=== PATIENT | male | born 1950 | race Two or more races ===

== ENCOUNTER → 2017-09-25 06:58 | Outpatient (CLI) | payer OTHER | END | disposition home or self-care (01) | LOC: LAB 06:58 | DX: D47.2 Monoclonal gammopathy (principal); C67.9 Malignant neoplasm of bladder, unspecified; B20 Human immunodeficiency virus [HIV] disease; E11.9 Type 2 diabetes mellitus without complications; E78.2 Mixed hyperlipidemia; M10.371 Gout due to renal impairment, right ankle and foot; D50.8 Other iron deficiency anemias; I10 Essential (primary) hypertension; C90.00 Multiple myeloma not having achieved remission; R97.0 Elevated carcinoembryonic antigen [CEA]; R97.8 Other abnormal tumor markers; C18.9 Malignant neoplasm of colon, unspecified; D63.1 Anemia in chronic kidney disease; N18.3 Chronic kidney disease, stage 3 (moderate); N34.2 Other urethritis ==

== ENCOUNTER 2017-12-29 09:41 | Outpatient (CLI) | payer OTHER | END 2017-12-29 09:42 | disposition home or self-care (01) | LOC: LAB 09:41 | DX: D47.2 Monoclonal gammopathy (principal); C67.8 Malignant neoplasm of overlapping sites of bladder; B20 Human immunodeficiency virus [HIV] disease; E11.9 Type 2 diabetes mellitus without complications; E78.2 Mixed hyperlipidemia; M10.371 Gout due to renal impairment, right ankle and foot; D63.1 Anemia in chronic kidney disease; N18.3 Chronic kidney disease, stage 3 (moderate); D50.8 Other iron deficiency anemias; D51.8 Other vitamin B12 deficiency anemias; I10 Essential (primary) hypertension; D51.1 Vitamin B12 deficiency anemia due to selective vitamin B12 malabsorption with proteinuria; D51.0 Vitamin B12 deficiency anemia due to intrinsic factor deficiency; R97.0 Elevated carcinoembryonic antigen [CEA]; R97.8 Other abnormal tumor markers; N34.0 Urethral abscess ==

== ENCOUNTER 2018-01-24 07:33 | Outpatient (CLI) | payer OTHER | END 2018-01-24 08:00 | disposition home or self-care (01) | LOC: NUCLEAR 07:33 | DX: I20.0 Unstable angina (principal); E78.2 Mixed hyperlipidemia; I11.9 Hypertensive heart disease without heart failure | CPT/HCPCS: 78452; 93017; A9500 ==

== ENCOUNTER 2018-08-06 08:51 | Outpatient (CLI) | payer OTHER | END 2018-08-06 08:57 | disposition home or self-care (01) | LOC: LAB 08:51 | DX: C67.9 Malignant neoplasm of bladder, unspecified (principal); R97.0 Elevated carcinoembryonic antigen [CEA]; B20 Human immunodeficiency virus [HIV] disease; D63.1 Anemia in chronic kidney disease; N18.3 Chronic kidney disease, stage 3 (moderate); E11.9 Type 2 diabetes mellitus without complications; M10.371 Gout due to renal impairment, right ankle and foot; E78.2 Mixed hyperlipidemia; D50.8 Other iron deficiency anemias; D51.8 Other vitamin B12 deficiency anemias; I10 Essential (primary) hypertension ==

== ENCOUNTER 2019-11-22 07:05 | Outpatient (CLI) | payer OTHER | END 2019-11-22 07:13 | disposition home or self-care (01) | LOC: LAB 07:05 | PROVIDERS: ATTEND Internal Medicine Nephrology | DX: R97.20 Elevated prostate specific antigen [PSA] (principal); R80.8 Other proteinuria; N18.3 Chronic kidney disease, stage 3 (moderate); E11.21 Type 2 diabetes mellitus with diabetic nephropathy; D50.8 Other iron deficiency anemias; D51.8 Other vitamin B12 deficiency anemias; E55.9 Vitamin D deficiency, unspecified; D47.2 Monoclonal gammopathy; C90.00 Multiple myeloma not having achieved remission; R97.0 Elevated carcinoembryonic antigen [CEA]; R97.8 Other abnormal tumor markers ==

== ENCOUNTER 2019-11-22 07:45 | Outpatient (CLI) | payer OTHER | END 2019-11-22 07:53 | disposition home or self-care (01) | LOC: SONOGRAMA 07:45 → MAMO-SONO 08:15 | PROVIDERS: ATTEND Internal Medicine Hematology & Oncology | DX: C67.8 Malignant neoplasm of overlapping sites of bladder (principal); R97.0 Elevated carcinoembryonic antigen [CEA]; D47.2 Monoclonal gammopathy; B20 Human immunodeficiency virus [HIV] disease; D63.1 Anemia in chronic kidney disease; N18.3 Chronic kidney disease, stage 3 (moderate); E11.9 Type 2 diabetes mellitus without complications; M10.371 Gout due to renal impairment, right ankle and foot; E78.2 Mixed hyperlipidemia ==

== ENCOUNTER 2020-07-14 07:28 | Outpatient (CLI) | payer OTHER | END 2020-07-14 08:12 | disposition home or self-care (01) | LOC: LAB 07:28 | PROVIDERS: ATTEND Internal Medicine Hematology & Oncology | DX: R97.20 Elevated prostate specific antigen [PSA] (principal); D50.8 Other iron deficiency anemias; I10 Essential (primary) hypertension; D51.8 Other vitamin B12 deficiency anemias; E55.9 Vitamin D deficiency, unspecified; D47.2 Monoclonal gammopathy; C90.00 Multiple myeloma not having achieved remission; D63.8 Anemia in other chronic diseases classified elsewhere; R97.0 Elevated carcinoembryonic antigen [CEA]; R97.8 Other abnormal tumor markers; C67.8 Malignant neoplasm of overlapping sites of bladder; B20 Human immunodeficiency virus [HIV] disease; D63.1 Anemia in chronic kidney disease; E11.9 Type 2 diabetes mellitus without complications; M10.371 Gout due to renal impairment, right ankle and foot; E78.2 Mixed hyperlipidemia ==

== ENCOUNTER → 2020-10-05 08:23 | Outpatient (CLI) | payer OTHER | END | disposition home or self-care (01) | LOC: LAB 08:23 | PROVIDERS: ATTEND Internal Medicine Hematology & Oncology | DX: C67.8 Malignant neoplasm of overlapping sites of bladder (principal); R97.0 Elevated carcinoembryonic antigen [CEA]; D47.2 Monoclonal gammopathy; B20 Human immunodeficiency virus [HIV] disease; D63.1 Anemia in chronic kidney disease; N18.30 Chronic kidney disease, stage 3 unspecified; E11.9 Type 2 diabetes mellitus without complications; M10.371 Gout due to renal impairment, right ankle and foot; E78.2 Mixed hyperlipidemia; D50.8 Other iron deficiency anemias; R79.89 Other specified abnormal findings of blood chemistry; R74.02 Elevation of levels of lactic acid dehydrogenase [LDH]; I10 Essential (primary) hypertension; K76.89 Other specified diseases of liver; C90.00 Multiple myeloma not having achieved remission; D63.8 Anemia in other chronic diseases classified elsewhere ==

== ENCOUNTER → 2021-03-17 08:31 | Outpatient (CLI) | payer OTHER | END | disposition home or self-care (01) | LOC: LAB 08:31 | PROVIDERS: ATTEND Internal Medicine Hematology & Oncology | DX: I10 Essential (primary) hypertension (principal); D50.8 Other iron deficiency anemias; K76.89 Other specified diseases of liver; D51.8 Other vitamin B12 deficiency anemias; D47.2 Monoclonal gammopathy; C90.00 Multiple myeloma not having achieved remission; D63.8 Anemia in other chronic diseases classified elsewhere; C67.8 Malignant neoplasm of overlapping sites of bladder; B20 Human immunodeficiency virus [HIV] disease; D63.1 Anemia in chronic kidney disease; N18.30 Chronic kidney disease, stage 3 unspecified; E11.9 Type 2 diabetes mellitus without complications; M10.371 Gout due to renal impairment, right ankle and foot; E78.2 Mixed hyperlipidemia; E11.21 Type 2 diabetes mellitus with diabetic nephropathy; R80.8 Other proteinuria ==

== ENCOUNTER 2021-03-30 11:16 | Outpatient (CLI) | payer OTHER | END 2021-03-30 11:20 | disposition home or self-care (01) | LOC: LAB 11:16 | PROVIDERS: ATTEND Internal Medicine Hematology & Oncology | DX: C67.8 Malignant neoplasm of overlapping sites of bladder (principal); E11.9 Type 2 diabetes mellitus without complications; R97.0 Elevated carcinoembryonic antigen [CEA]; B20 Human immunodeficiency virus [HIV] disease; C90.00 Multiple myeloma not having achieved remission; D63.1 Anemia in chronic kidney disease; M10.371 Gout due to renal impairment, right ankle and foot; E78.2 Mixed hyperlipidemia ==

== ENCOUNTER 2021-12-16 09:59 | Outpatient (CLI) | payer OTHER | END 2021-12-16 10:05 | disposition home or self-care (01) | LOC: LAB 09:59 | PROVIDERS: ATTEND Internal Medicine Hematology & Oncology | DX: D64.9 Anemia, unspecified (principal); N39.0 Urinary tract infection, site not specified; R10.9 Unspecified abdominal pain; E03.9 Hypothyroidism, unspecified; E78.5 Hyperlipidemia, unspecified; R80.9 Proteinuria, unspecified; E11.9 Type 2 diabetes mellitus without complications; N40.0 Benign prostatic hyperplasia without lower urinary tract symptoms; Z12.5 Encounter for screening for malignant neoplasm of prostate; D50.8 Other iron deficiency anemias; R79.9 Abnormal finding of blood chemistry, unspecified; R74.02 Elevation of levels of lactic acid dehydrogenase [LDH]; K76.89 Other specified diseases of liver; C67.9 Malignant neoplasm of bladder, unspecified; D89.0 Polyclonal hypergammaglobulinemia; R97.0 Elevated carcinoembryonic antigen [CEA]; D63.1 Anemia in chronic kidney disease; M10.371 Gout due to renal impairment, right ankle and foot; E78.2 Mixed hyperlipidemia; N18.30 Chronic kidney disease, stage 3 unspecified ==

== ENCOUNTER → 2022-07-04 09:18 | Outpatient (CLI) | payer OTHER | END | disposition home or self-care (01) | LOC: LAB 09:18 | PROVIDERS: ATTEND Internal Medicine Hematology & Oncology | DX: D50.8 Other iron deficiency anemias (principal); R79.9 Abnormal finding of blood chemistry, unspecified; R74.02 Elevation of levels of lactic acid dehydrogenase [LDH]; K76.89 Other specified diseases of liver; D47.2 Monoclonal gammopathy; C90.00 Multiple myeloma not having achieved remission; C67.9 Malignant neoplasm of bladder, unspecified; R97.0 Elevated carcinoembryonic antigen [CEA]; B20 Human immunodeficiency virus [HIV] disease; D63.1 Anemia in chronic kidney disease; N18.30 Chronic kidney disease, stage 3 unspecified; E11.9 Type 2 diabetes mellitus without complications; M10.371 Gout due to renal impairment, right ankle and foot; E78.2 Mixed hyperlipidemia ==

== ENCOUNTER 2023-01-09 08:07 | Outpatient (CLI) | payer OTHER | END 2023-01-09 08:12 | disposition home or self-care (01) | LOC: LAB 08:07 | PROVIDERS: ATTEND Internal Medicine Hematology & Oncology | DX: C67.9 Malignant neoplasm of bladder, unspecified (principal); R97.0 Elevated carcinoembryonic antigen [CEA]; B20 Human immunodeficiency virus [HIV] disease; D63.1 Anemia in chronic kidney disease; E11.21 Type 2 diabetes mellitus with diabetic nephropathy; M10.371 Gout due to renal impairment, right ankle and foot; E78.2 Mixed hyperlipidemia; N18.31 Chronic kidney disease, stage 3a; D50.8 Other iron deficiency anemias; R79.9 Abnormal finding of blood chemistry, unspecified; R74.02 Elevation of levels of lactic acid dehydrogenase [LDH]; K76.89 Other specified diseases of liver; D47.2 Monoclonal gammopathy; C90.00 Multiple myeloma not having achieved remission; D63.8 Anemia in other chronic diseases classified elsewhere; R80.9 Proteinuria, unspecified ==

== ENCOUNTER 2023-06-13 10:56 | Outpatient (CLI) | payer OTHER | END 2023-06-13 11:00 | disposition home or self-care (01) | LOC: RAD 10:56 | DX: R07.89 Other chest pain (principal) ==

== ENCOUNTER → 2023-07-03 09:05 | Outpatient (CLI) | payer OTHER ==
[2023-07-03 09:47] LABS: HEMATOCRIT 41.8 % (39.0-48.0); HEMOGLOBIN 13.8 g/dL (13-16.00); MEAN CELL VOLUME 92.9 fL (80.0-100.00); MEAN CORPUSCULAR HEMOGLOBIN 30.8 pg (27.00-32.0); MEAN CORPUSCULAR HGB CONC 33.2 g/dl (32.0-36.0); PLATELET COUNT 278 K/uL (150-450); RED BLOOD COUNT 4.49 M/uL (4.00-6.00); RED CELL DISTRIBUTION WIDTH 15.2 % (11.5-14.5)
[2023-07-03 10:16] LABS: % SATURACION 24.2 % (20-50); ALBUMIN 3.8 gm/dL (3.4-5.0); BILIRUBIN TOTAL 0.56 mg/dL (0.3-1.2); CALCIUM 9.8 mg/dL (8.5-10.1); CREATININE SERUM 2.1 mg/dL (0.70-1.30); FERRITIN 58.9 NG/ML (26-388); GFR 31.03; GLOBULINA 4.1 G/DL (2.4-3.5); TOTAL PROTEIN 7.9 gm/dL (6.4-8.2)
[2023-07-03 11:49] LABS: FOLIC ACID > 20.00 ng/ml (4.78-20); VITAMIN D3 25 HYDROXY 94.19 ng/ml (30-120)
[2023-07-04 08:21] LABS: MANUAL PLATELET COUNT 484
[2023-07-04 08:22] LABS: PLATELET ESTIMATE NORMAL (NORMAL)
[2023-07-05 18:11] LABS: ERYTHROPOIETIN 11.4 mIU/mL (2.6-18.5)
[2023-07-06 20:06] LABS: t prot u 16.1 mg/dL (Not Estab.)
== END | disposition home or self-care (01) ==
LOC: LAB 09:05
PROVIDERS: ATTEND Internal Medicine Hematology & Oncology
DX: D50.8 Other iron deficiency anemias (principal); R79.9 Abnormal finding of blood chemistry, unspecified; I10 Essential (primary) hypertension; K76.89 Other specified diseases of liver; E55.9 Vitamin D deficiency, unspecified; D47.2 Monoclonal gammopathy; C90.00 Multiple myeloma not having achieved remission; C67.9 Malignant neoplasm of bladder, unspecified; D63.1 Anemia in chronic kidney disease; E11.9 Type 2 diabetes mellitus without complications; M10.371 Gout due to renal impairment, right ankle and foot; E78.2 Mixed hyperlipidemia

== ENCOUNTER 2023-08-28 07:17 | Outpatient (CLI) | payer OTHER | END 2023-08-28 07:22 | disposition home or self-care (01) | LOC: SONOGRAMA 07:17 | PROVIDERS: ATTEND Internal Medicine Nephrology | DX: N18.32 Chronic kidney disease, stage 3b (principal); I10 Essential (primary) hypertension; R80.9 Proteinuria, unspecified ==

== ENCOUNTER 2024-01-09 08:23 | Outpatient (CLI) | payer OTHER ==
[2024-01-09 09:23] LABS: HEMATOCRIT 39.1 % (39.0-48.0); HEMOGLOBIN 13.2 g/dL (13-16.00); MEAN CORPUSCULAR HEMOGLOBIN 30.4 pg (27.00-32.0); MEAN CORPUSCULAR HGB CONC 33.7 g/dl (32.0-36.0); PLATELET COUNT 290 K/uL (150-450); RED BLOOD COUNT 4.35 M/uL (4.00-6.00); RED CELL DISTRIBUTION WIDTH 15.1 % (11.5-14.5)
[2024-01-09 10:15] LABS: % SATURACION 24.9 % (20-50); ALBUMIN 3.9 gm/dL (3.4-5.0); BILIRUBIN TOTAL 0.53 mg/dL (0.3-1.2); CALCIUM 9.7 mg/dL (8.5-10.1); CREATININE SERUM 2.24 mg/dL (0.70-1.30); FERRITIN 99.3 NG/ML (26-388); GFR 28.72; GLOBULINA 4.1 G/DL (2.4-3.5); POTASSIUM 5.43 mEq/L (3.5-5.1)
[2024-01-09 10:27] LABS: PROSTATIC SPECIFIC ANTIGEN 4.97 NG/ML (0.010-4.00)
[2024-01-09 10:29] LABS: MANUAL PLATELET COUNT 312
[2024-01-09 10:32] LABS: PLATELET ESTIMATE NORMAL (NORMAL)
[2024-01-09 13:40] LABS: FOLIC ACID > 20.00 ng/ml (4.78-20)
[2024-01-09 13:41] LABS: VITAMIN D3 25 HYDROXY 57.52 ng/ml (30-120)
== END 2024-01-09 08:30 | disposition home or self-care (01) ==
LOC: LAB 08:23
PROVIDERS: ATTEND Internal Medicine Hematology & Oncology
DX: C67.9 Malignant neoplasm of bladder, unspecified (principal); R97.0 Elevated carcinoembryonic antigen [CEA]; B20 Human immunodeficiency virus [HIV] disease; D63.1 Anemia in chronic kidney disease; N18.30 Chronic kidney disease, stage 3 unspecified; E11.9 Type 2 diabetes mellitus without complications; M10.371 Gout due to renal impairment, right ankle and foot; E78.2 Mixed hyperlipidemia; E50.8 Other manifestations of vitamin A deficiency; I10 Essential (primary) hypertension; R74.02 Elevation of levels of lactic acid dehydrogenase [LDH]; K76.89 Other specified diseases of liver; E55.9 Vitamin D deficiency, unspecified; C25.9 Malignant neoplasm of pancreas, unspecified

== ENCOUNTER 2024-03-27 13:52 | Outpatient (CLI) | payer OTHER | END 2024-03-27 14:04 | disposition home or self-care (01) | LOC: RAD 13:52 | PROVIDERS: ATTEND Internal Medicine Infectious Disease | DX: J18.0 Bronchopneumonia, unspecified organism (principal) ==

== ENCOUNTER → 2024-07-05 08:12 | Outpatient (CLI) | payer OTHER ==
[2024-07-05 09:25] LABS: HEMATOCRIT 38.4 % (39.0-48.0); HEMOGLOBIN 12.4 g/dL (13-16.00); MEAN CELL VOLUME 92.8 fL (80.0-100.00); MEAN CORPUSCULAR HEMOGLOBIN 30.1 pg (27.00-32.0); MEAN CORPUSCULAR HGB CONC 32.4 g/dl (32.0-36.0); PLATELET COUNT 260 K/uL (150-450); RED BLOOD COUNT 4.13 M/uL (4.00-6.00); RED CELL DISTRIBUTION WIDTH 14.3 % (11.5-14.5)
[2024-07-05 10:19] LABS: ALBUMIN 3.5 gm/dL (3.4-5.0); BILIRUBIN TOTAL 0.3 mg/dL (0.3-1.2); CALCIUM 9.1 mg/dL (8.5-10.1); CREATININE SERUM 1.99 mg/dL (0.70-1.30); FERRITIN 77.4 NG/ML (26-388); GFR 32.92; GLOBULINA 3.8 G/DL (2.4-3.5); TOTAL PROTEIN 7.3 gm/dL (6.4-8.2)
[2024-07-05 10:25] LABS: POTASSIUM 5.97 mEq/L (3.5-5.1); PROSTATIC SPECIFIC ANTIGEN 5.23 NG/ML (0.010-4.00)
[2024-07-05 10:36] LABS: FOLIC ACID 16.88 ng/ml (4.78-20); VITAMIN D3 25 HYDROXY 61.08 ng/ml (30-120)
[2024-07-05 12:50] LABS: MANUAL PLATELET COUNT 388
[2024-07-05 12:52] LABS: PLATELET ESTIMATE NORMAL (NORMAL)
== END | disposition home or self-care (01) ==
LOC: LAB 08:12
PROVIDERS: ATTEND Internal Medicine Hematology & Oncology
DX: C67.9 Malignant neoplasm of bladder, unspecified (principal); R97.0 Elevated carcinoembryonic antigen [CEA]; D47.2 Monoclonal gammopathy; B20 Human immunodeficiency virus [HIV] disease; D63.1 Anemia in chronic kidney disease; E11.9 Type 2 diabetes mellitus without complications; N18.30 Chronic kidney disease, stage 3 unspecified; M10.371 Gout due to renal impairment, right ankle and foot; E78.2 Mixed hyperlipidemia; D50.8 Other iron deficiency anemias; R79.9 Abnormal finding of blood chemistry, unspecified; I10 Essential (primary) hypertension; R74.02 Elevation of levels of lactic acid dehydrogenase [LDH]; K76.89 Other specified diseases of liver; E55.9 Vitamin D deficiency, unspecified; C25.9 Malignant neoplasm of pancreas, unspecified; R97.8 Other abnormal tumor markers; R97.20 Elevated prostate specific antigen [PSA]

== ENCOUNTER 2024-12-30 07:36 | Outpatient (CLI) | payer OTHER ==
[2024-12-30 08:14] LABS: BASO % 1.2 % (0.1-1.2); EOS # 0.65 (0.04-0.54); EOS % 10.7 % (0.7-7.0); LYMPH # 1.36 (1.18-3.74); LYMPH % 22.5 % (19.3-53.1); MEAN PLATELET VOLUME 10.10 fl (9.4-12.4); MONO # 0.49 (0.24-0.82); MONO % 8.1 % (4.7-12.5); NEUT # 3.44 (1.56-6.13); NEUT % 56.8 % (34.0-71.1); RED CELL DISTRIBUTION WIDTH 14.6 % (11.6-14.4)
[2024-12-30 08:23] LABS: URINE APPEARANCE Clear; URINE BILIRRUBIN Negative (NEGATIVE); URINE BLOOD Negative; URINE COLOR Yellow; URINE GLUCOSE Negative (NEGATIVE); URINE KETONE Negative (NEGATIVE); URINE LEUKOCYTE Negative; URINE NITRATE Negative; URINE PROTEIN Trace (NEGATIVE); URINE UROBILINOGEN 0.2 E.U./dl
[2024-12-30 08:26] LABS: URINE BACTERIA 5.9 uL (0.0-1933); URINE WBC 1.9 uL (0.0-23.2)
[2024-12-30 08:38] LABS: URINE CAST 0.14 uL (0.0-1.40); URINE EPITHELIAL CELLS 1.2 uL (0.0-38.8); URINE RBC 0.4 uL (0.0-20.8)
[2024-12-30 10:05] LABS: BUN CREA RATIO 14.0 (7.0-25.0); CREATININE SERUM 2.17 mg/dL (0.70-1.30); GFR 29.71; GLUCOSE FASTING 106.0 mg/dL (65-100); OSMOLALITY SERUM 294.0 MOSM/KG (275-295)
[2024-12-30 10:06] LABS: % SATURACION 18.6 % (20-50); ALT/SGPT 24.0 U/L (12-78); AST/SGOT 22.0 U/L (15-37); BILIRUBIN TOTAL 0.33 mg/dL (0.3-1.2); FE 55.0 ug/dl (65-175); GLOBULINA 4.3 G/DL (2.4-3.5); LDH 199.0 U/L (87-241)
[2024-12-30 10:07] LABS: PROSTATIC SPECIFIC ANTIGEN 5.03 NG/ML (0.010-4.00)
[2024-12-30 11:40] LABS: CREATININE URINE RANDOM 70.4 MG/DL (30-125)
[2024-12-30 15:30] LABS: FOLIC ACID > 20.00 ng/ml (4.78-20); VITAMIN D3 25 HYDROXY 62.53 ng/ml (30-120)
== END 2024-12-30 07:37 | disposition home or self-care (01) ==
LOC: LAB 07:36
PROVIDERS: ATTEND Internal Medicine Hematology & Oncology
DX: C67.9 Malignant neoplasm of bladder, unspecified (principal); R97.0 Elevated carcinoembryonic antigen [CEA]; B20 Human immunodeficiency virus [HIV] disease; D63.1 Anemia in chronic kidney disease; N18.30 Chronic kidney disease, stage 3 unspecified; E11.9 Type 2 diabetes mellitus without complications; M10.371 Gout due to renal impairment, right ankle and foot; E78.2 Mixed hyperlipidemia; D50.8 Other iron deficiency anemias; R79.9 Abnormal finding of blood chemistry, unspecified; I10 Essential (primary) hypertension; R74.02 Elevation of levels of lactic acid dehydrogenase [LDH]; K76.89 Other specified diseases of liver; N18.32 Chronic kidney disease, stage 3b; R80.9 Proteinuria, unspecified